=== PATIENT | female | born 1940 | race Caucasian/White ===

== ENCOUNTER → 2018-01-19 | Outpatient (CLI) | payer MEDICARE, OTHER ==
[~2018-01-19] MED LIST: CALCAVITD PO; CELE100 PO; CEPH500 PO; CETI10 PO; CHOL10002 PO; ESTR2 PO; Estrace PO; FAMO20 PO; GLUCHON PO; GLUCOSAMINE/MSM PO; HYDPAM50 PO; LEVOTHYROXINE PO; LEVSOD137 PO; LEVSOD50 PO; LISI20 PO; LISI5 PO; LOSA25; MOTION RELIEF25 MG PO; MULVITMIND PO; Norco 7.5-3251 EACH PO; OMEP20ER PO; OXYB5 PO; PRAV20 PO; PRED20 PO; Pravachol PO; Prilosec40 MG PO; SUCR1 PO; SULTRIDS PO; SULTRIEL PO; Synthroid112 MCG; TRIM100 PO; Transderm-Scop1 EACH TOP
== END | disposition home or self-care (01) ==
LOC: LAB SHORT 14:23 → OLS 14:23
DX: N39.0 Urinary tract infection, site not specified (principal)
CPT/HCPCS: 87077; 87086; 87186

== ENCOUNTER → 2018-05-19 | Outpatient (CLI) | payer MEDICARE, OTHER ==
[2018-05-24 15:07] LABS: HPV 16 Negative (Negative); HPV 18 Negative (Negative); HPV OTHER HR TYPES Negative (Negative)
== END | disposition home or self-care (01) ==
LOC: LAB 18:00 → LAB SHORT 18:00
PROVIDERS: Nurse Practitioner Women's Health
DX: Z12.72 Encounter for screening for malignant neoplasm of vagina (principal)
CPT/HCPCS: 87624; G0123

== ENCOUNTER → 2020-04-25 | Outpatient (CLI) | payer MEDICARE, OTHER ==
[2020-04-25 14:52] LABS: Stool Occult Blood Guaiac 1 Neg (Neg)
== END ==
LOC: LAB SHORT 11:16 → LAB EV 11:16
PROVIDERS: Internal Medicine
DX: D64.9 Anemia, unspecified (principal)
CPT/HCPCS: 82270

== ENCOUNTER 2020-09-25 00:27 | Day surgery (SDC) | payer MEDICARE, OTHER ==
[2020-09-25] MEDS ORDERED: IRON18 MG PO (09:00)
[2020-09-25] MEDS ORDERED: TUMS500 MG PO (09:01)
[2020-09-25] MEDS ORDERED: [UNRECOGNIZED DRUG - OTHER] PO (09:01)
[2020-09-25] MEDS ORDERED: MAGNESIUM OXID500 MG PO (09:02)
[2020-09-25] MEDS ORDERED: ZINC15 PO (09:02)
[2020-09-25] MEDS ORDERED: VITAMIN D5000 UNIT PO (09:03)
[2020-09-25] MEDS ORDERED: ROPI1 PO ×2 (09:04→09:06)
== END 2020-09-25 10:24 | disposition home or self-care (01) ==
LOC: ATC 00:27
DX: D46.1 Refractory anemia with ring sideroblasts (principal); I12.9 Hypertensive chronic kidney disease with stage 1 through stage 4 chronic kidney disease, or unspecified chronic kidney disease; N18.9 Chronic kidney disease, unspecified; D63.1 Anemia in chronic kidney disease; E55.9 Vitamin D deficiency, unspecified; D72.818 Other decreased white blood cell count; M19.90 Unspecified osteoarthritis, unspecified site; Z87.440 Personal history of urinary (tract) infections; Z79.899 Other long term (current) drug therapy; Z87.891 Personal history of nicotine dependence
CPT/HCPCS: 36415; 36430; 86850; 86900; 86901; 86923; J7050; P9016

== ENCOUNTER → 2021-07-07 | Outpatient (CLI) | payer MEDICARE, OTHER ==
[~2021-07-07] MED LIST changes: +IRON18 MG PO; +MAGNESIUM OXID500 MG PO; +ROPI1 PO; +TUMS500 MG PO; +VITAMIN D5000 UNIT PO; +ZINC15 PO; +[UNRECOGNIZED DRUG - OTHER] PO
[2021-07-07 09:13] LABS: BASOPHILS ABSOLUTE AUTO 0.04 K/mm3 (0.00-0.23); BASOPHILS PERCENT AUTO 1 % (0-2); EOSINOPHILS ABSOLUTE AUTO 0.04 K/mm3 (0.00-0.68); EOSINOPHILS PERCENT AUTO 1 % (0-6); Hemoglobin 9.4 g/dL (11.5-16.0); IMMATURE GRAN ABSOLUTE AUTO 0.02 K/mm3 (0.00-0.10); IMMATURE GRAN PERCENT AUTO 1 % (0-1); LYMPHOCYTES ABSOLUTE AUTO 0.34 K/mm3 (0.84-5.20); LYMPHOCYTES PERCENT AUTO 10 % (21-46); MONOCYTES ABSOLUTE AUTO 0.36 K/mm3 (0.16-1.47); MONOCYTES PERCENT AUTO 11 % (4-13); Mean Corpuscular HGB 34.4 pg (26.0-34.0); Mean Corpuscular HGB Conc 34.8 g/dL (31.5-36.5); Mean Corpuscular Volume 99 fL (80-100); Mean Platelet Volume 11.3 fL (9.1-12.4); NEUTROPHILS ABSOLUTE AUTO 2.52 K/mm3 (1.96-9.15); NEUTROPHILS PERCENT AUTO 76 % (41-73); Platelet Count 278 K/mm3 (150-400); RDW Coefficient Variation 18.8 % (11.7-14.2); RDW Standard Deviation 67.6 fL (35.1-46.3); Red Blood Cell Count 2.73 M/mm3 (3.80-5.20); White Blood Cell Count 3.32 K/mm3 (4.00-11.30)
[2021-07-07 09:29] LABS: Albumin, Blood 4.2 g/dL (3.4-5.0); Albumin/Globulin Ratio 1.3 (0.8-1.8); Bilirubin, Total 0.8 mg/dL (0.1-1.0); Bun/Creatinine Ratio 15.2 (12.0-20.0); Calcium, Blood 8.8 mg/dL (8.5-10.1); Creatinine, Blood 1.25 mg/dL (0.40-1.00); Globulin, Blood 3.3 g/dL (2.2-4.0); Potassium, Blood 4.3 mmol/L (3.5-5.5); Total Protein, Blood 7.5 g/dL (6.4-8.2)
== END | disposition home or self-care (01) ==
LOC: LAB SHORT 09:09
PROVIDERS: Family Medicine
DX: R06.00 Dyspnea, unspecified (principal)
CPT/HCPCS: 80053; 85025; 85379

== ENCOUNTER 2021-07-13 12:20 | Emergency (ER) | payer MEDICARE, OTHER ==
[~2021-07-13] VITALS: Ht 167.6 cm; Wt 72.6 kg
[~2021-07-13 12:20] MED LIST changes: -REBLOZYL75 MG
[2021-07-13] MEDS ORDERED: REBLOZYL75 MG (12:57)
[2021-07-13 14:11] LABS: International Normalized Ratio 1.03; Prothrombin Time Results 10.8 Sec (9.7-11.5)
[2021-07-13 14:19] LABS: Alanine Aminotransfer (ALT/SGP 34 U/L (12-78); Albumin, Blood 3.3 g/dL (3.4-5.0); Alk Phos 60 U/L (50-136); Anion Gap 6 mmol/L (6-16); Aspartate Aminotrans (AST/SGOT 35 U/L (12-37); Bilirubin, Direct 0.2 mg/dL (0.0-0.3); Bilirubin, Indirect 0.7 mg/dL (0.1-0.7); Bilirubin, Total 0.9 mg/dL (0.1-1.0); Blood Urea Nitrogen 26 mg/dL (8-24); Bun/Creatinine Ratio 21.1 (12.0-20.0); CO2, Blood 27 mmol/L (21-32); Calcium, Blood 9.1 mg/dL (8.5-10.1); Chloride, Blood 97 mmol/L (98-108); Creatinine, Blood 1.23 mg/dL (0.40-1.00); Globulin, Blood 3.4 g/dL (2.2-4.0); Glomerular Filtration Rate 42 (60-); Glucose, Blood 107 mg/dL (70-99); Magnesium, Blood 1.8 mg/dL (1.6-2.4); Potassium, Blood 4.6 mmol/L (3.5-5.5); Sodium, Blood 130 mmol/L (136-145); Total Protein, Blood 6.7 g/dL (6.4-8.2); Troponin I <0.015 ng/mL (0.000-0.040)
[2021-07-13 15:17] LABS: Influenza A, PCR NEGATIVE (NEGATIVE); Influenza B, PCR NEGATIVE (NEGATIVE); Resp Syncytial Virus, PCR NEGATIVE (NEGATIVE)
[2021-07-13 16:28] LABS: SARS-Cov-2 (COVID-19) PCR, MMC POSITIVE (NEGATIVE)
== END 2021-07-13 20:30 | disposition short-term general hospital (02) ==
LOC: ER 12:20
PROVIDERS: Student in an Organized Health Care Education/Training Program
DX: K92.1 Melena (principal); D64.9 Anemia, unspecified; U07.1 COVID-19; E03.9 Hypothyroidism, unspecified; Z88.1 Allergy status to other antibiotic agents; Z88.8 Allergy status to other drugs, medicaments and biological substances; Z79.899 Other long term (current) drug therapy
CPT/HCPCS: 0241U; 80048; 80076; 83605; 83690; 83735; 84484; 85610; 85730; 86850; 86900; 86901; 96365; 96366; 96376; 99285-25; A9270; C9113; J2405; J7030

== ENCOUNTER → 2021-07-13 | Outpatient (CLI) | payer MEDICARE, OTHER ==
[~2021-07-13] MED LIST changes: +REBLOZYL75 MG
[2021-07-13 11:26] LABS: Hematocrit 23.9 % (33.0-51.0); Hemoglobin 8.3 g/dL (11.5-16.0); Mean Corpuscular HGB 34.6 pg (26.0-34.0); Mean Corpuscular HGB Conc 34.7 g/dL (31.5-36.5); Mean Corpuscular Volume 100 fL (80-100); Mean Platelet Volume 12.5 fL (9.1-12.4); RDW Coefficient Variation 18.5 % (11.7-14.2); RDW Standard Deviation 66.2 fL (35.1-46.3)
[2021-07-13 11:37] LABS: Albumin, Blood 3.9 g/dL (3.4-5.0); Albumin/Globulin Ratio 1.2 (0.8-1.8); Bilirubin, Total 0.8 mg/dL (0.1-1.0); Bun/Creatinine Ratio 16.9 (12.0-20.0); Calcium, Blood 9.2 mg/dL (8.5-10.1); Creatinine, Blood 1.42 mg/dL (0.40-1.00); Globulin, Blood 3.3 g/dL (2.2-4.0); Potassium, Blood 4.2 mmol/L (3.5-5.5); Total Protein, Blood 7.2 g/dL (6.4-8.2)
[2021-07-13 11:39] LABS: BASOPHILS ABSOLUTE AUTO 0.03 K/mm3 (0.00-0.23); BASOPHILS PERCENT AUTO 0 % (0-2); EOSINOPHILS ABSOLUTE AUTO 0.04 K/mm3 (0.00-0.68); EOSINOPHILS PERCENT AUTO 1 % (0-6); IMMATURE GRAN ABSOLUTE AUTO 0.16 K/mm3 (0.00-0.10); IMMATURE GRAN PERCENT AUTO 2 % (0-1); LYMPHOCYTES ABSOLUTE AUTO 0.86 K/mm3 (0.84-5.20); LYMPHOCYTES PERCENT AUTO 13 % (21-46); MONOCYTES ABSOLUTE AUTO 0.52 K/mm3 (0.16-1.47); MONOCYTES PERCENT AUTO 8 % (4-13); NEUTROPHILS ABSOLUTE AUTO 5.12 K/mm3 (1.96-9.15); NEUTROPHILS PERCENT AUTO 76 % (41-73); NRBC ABSOLUTE 0.19 K/mm3 (0.00-0.02); NRBC Auto 2.8 /100 WBC (0.0-0.2); Platelet Count 234 K/mm3 (150-400); White Blood Cell Count 6.73 K/mm3 (4.00-11.30)
== END | disposition home or self-care (01) ==
LOC: LAB 11:22 → LAB SHORT 11:22
PROVIDERS: General Practice
DX: R10.9 Unspecified abdominal pain (principal)
CPT/HCPCS: 80053; 82150; 85025

== ENCOUNTER 2023-09-24 08:28 | Day surgery (SDC) | payer MEDICARE, OTHER ==
[2023-09-24] VITALS (11 sets, daily range): BP systolic 132–168; BP diastolic 60–79
[~2023-09-24] VITALS: Ht 167.6 cm; Wt 74.9 kg
[~2023-09-24 08:28] MED LIST changes: +CLON.5; +ONDA4 PO; +REBLOZYL75 MG; +TRAM50
[2023-09-24 10:55] LABS: Albumin, Blood 3.8 g/dL (3.4-5.0); Albumin/Globulin Ratio 1.1 (0.8-1.8); Bilirubin, Total 1.3 mg/dL (0.1-1.0); Bun/Creatinine Ratio 20.6 (12.0-20.0); Calcium, Blood 8.5 mg/dL (8.5-10.1); Creatinine, Blood 1.02 mg/dL (0.40-1.00); Globulin, Blood 3.4 g/dL (2.2-4.0); Potassium, Blood 4.1 mmol/L (3.5-5.5); Total Protein, Blood 7.2 g/dL (6.4-8.2)
--- NOTE | 2023-09-24 12:23 | NUR ---
PT TO DAY SURGERY STEP DOWN FROM PACU; BEDSIDE REPORT RECEIVED FROM LIVIA KANG. PT IS AWAKE, ALERT AND ORIENTED; ABLE TO MOVE SELF IN BED. VSS. PT HAS NO COMPLAINTS AT THIS TIME. PT HAD MEDIPORT PLACED IN HER RIGHT UPPER CHEST AREA, THE INCISION IS COVERED WITH GUAZE AND CLEAR TEGADERM AND IS C/D/I. PT ALSO HAS A STERI STRIP ON LOWER RIGHT NECK, IT HAS SMALL AMOUNT OF DRIED BLOOD ON IT. PT HAS NO COMPLAINTS AT THIS TIME.
--- NOTE | 2023-09-24 12:35 | NUR ---
PO FLUIDS GIVEN TO PT. PT AT BEDSIDE.
--- NOTE | 2023-09-24 12:41 | NUR ---
Patient denies nausea at this time. Tolerating sips of juice. Denies pain to surgery site, but states she has a headache. 2x2 gauze drsg to right side chest wall intact coverd by clear drsg. No visible swelling, erythema, drainage or bruising noted. Steri Strip x1 to righ lower anterior neck clean, dry and intact with scant amount dry red drainage noted.
--- NOTE | 2023-09-24 12:45 | NUR ---
, Anam, at bedside. to drive patient home.
--- NOTE | 2023-09-24 13:21 | NUR ---
PATIENT AMBULATED TO BR WITH STAND BY ASSIST. GAIT STEADY. PATIENT DENIES DIZZINESS WITH STANDING. VSS. Discharge instructions reviewed with patient. Patient verbalizes understanding. Copy given to patient to take home. Prescription script given to patient to fill at pharmacy of choice.
== END 2023-09-24 13:22 | disposition home or self-care (01) ==
LOC: ORD 08:28 → ORSCMMR 08:28 → ORD 10:30
PROVIDERS: Anesthesiology; Surgery
PROC: 05HM33Z Insertion of Infusion Device into Right Internal Jugular Vein, Percutaneous Approach (ICD-10-PCS; principal; 2023-09-24 10:30)
PROC: B543ZZA Ultrasonography of Right Jugular Veins, Guidance (ICD-10-PCS; principal; 2023-09-24 10:30)
PROC: 0JH63WZ Insertion of Totally Implantable Vascular Access Device into Chest Subcutaneous Tissue and Fascia, Percutaneous Approach (ICD-10-PCS; principal; 2023-09-24 10:30)
DX: D46.4 Refractory anemia, unspecified (principal); I12.9 Hypertensive chronic kidney disease with stage 1 through stage 4 chronic kidney disease, or unspecified chronic kidney disease; N18.9 Chronic kidney disease, unspecified; E78.00 Pure hypercholesterolemia, unspecified; Z78.9 Other specified health status; E03.9 Hypothyroidism, unspecified; E78.5 Hyperlipidemia, unspecified; Z79.899 Other long term (current) drug therapy
CPT/HCPCS: 77001; 80053; C1788; J0690; J1100; J1642; J2001; J2405; J2704; J3010; J7120

== ENCOUNTER 2023-09-27 04:29 | Day surgery (SDC) | payer MEDICARE, OTHER ==
[2023-09-27 13:35] VITALS: BP 153/54
[2023-09-27 14:33] VITALS: BP 143/61
[2023-09-27 15:32] VITALS: BP 140/56
[2023-09-27 15:55] VITALS: BP 149/59
[2023-09-27] MEDS ORDERED: LOSA50 PO (16:10)
[2023-09-27] MEDS ORDERED: HYDROCODONE-AC1 EA19 PO (16:10)
[2023-09-27] MEDS ORDERED: COLACE100 MG PO (16:12)
[2023-09-27] MEDS ORDERED: K2 LIQUID90 MCG/0.5 PO (16:12)
[2023-09-27] MEDS ORDERED: VITAMIN D5000 UNIT PO (16:13)
[2023-09-27] MEDS ORDERED: OMEPRAZOLE20 M2 PO (16:14)
== END 2023-09-27 16:03 | disposition home or self-care (01) ==
LOC: ATC 04:29
DX: D46.1 Refractory anemia with ring sideroblasts (principal); E78.00 Pure hypercholesterolemia, unspecified; I12.9 Hypertensive chronic kidney disease with stage 1 through stage 4 chronic kidney disease, or unspecified chronic kidney disease; N18.9 Chronic kidney disease, unspecified; Z79.899 Other long term (current) drug therapy; Z88.8 Allergy status to other drugs, medicaments and biological substances; D46.9 Myelodysplastic syndrome, unspecified
CPT/HCPCS: 36415; 36430; 86850; 86900; 86901; 86923; J1642; J7050; P9016

== ENCOUNTER 2023-10-16 07:37 | Inpatient (IN) | payer MEDICARE, OTHER ==
[~2023-10-16] VITALS: Ht 162.6 cm; Wt 76.3 kg
[2023-10-16] VITALS (11 sets, daily range): BP systolic 116–146; BP diastolic 51–96
[~2023-10-16 07:37] MED LIST changes: +ASCO500 PO; +COLACE100 MG PO; +HYDROCODONE-AC1 EA19 PO; +LOSA50 PO; +OMEPRAZOLE20 M2 PO; +Vitamin K100 MCG PO; -[UNRECOGNIZED DRUG - OTHER] PO
[2023-10-16 08:43] LABS: Mean Corpuscular HGB 33.3 pg (26.0-34.0); Mean Corpuscular HGB Conc 34.7 g/dL (31.5-36.5); Mean Corpuscular Volume 96 fL (80-100); RDW Coefficient Variation 21.3 % (11.7-14.2); RDW Standard Deviation 74.2 fL (35.1-46.3)
[2023-10-16 09:00] LABS: Albumin, Blood 3.1 g/dL (3.4-5.0); Albumin/Globulin Ratio 0.9 (0.8-1.8); Bilirubin, Total 0.5 mg/dL (0.1-1.0); Bun/Creatinine Ratio 16.8 (12.0-20.0); Calcium, Blood 8.2 mg/dL (8.5-10.1); Creatinine, Blood 1.19 mg/dL (0.40-1.00); Globulin, Blood 3.6 g/dL (2.2-4.0); Hematocrit 17.3 % (33.0-51.0); Potassium, Blood 4.1 mmol/L (3.5-5.5); Total Protein, Blood 6.7 g/dL (6.4-8.2); White Blood Cell Count 0.16 K/mm3 (4.00-11.30)
[2023-10-16 09:01] LABS: Platelet Count 24 K/mm3 (150-400)
[2023-10-16 09:24] LABS: BASOPHILS PERCENT MAN 4 % (0-2); EOSINOPHILS PERCENT MAN 4 % (0-6); LYMPHOCYTES % ATYPICAL MANUAL 4 % (0-0); LYMPHOCYTES ABSOLUTE MAN 0.11 K/mm3 (0.84-5.20); LYMPHOCYTES PERCENT MAN 68 % (21-46); MONOCYTES ABSOLUTE MAN 0.01 K/mm3 (0.16-1.47); MONOCYTES PERCENT MAN 12 % (4-13); NEUTROPHILS ABSOLUTE MAN 0.01 K/mm3 (1.96-9.15); SEG NEUTROPHILS PERCENT MAN 8 % (41-73); TOTAL CELLS COUNTED 25
[2023-10-16 10:29] LABS: Influenza A, PCR NEGATIVE (NEGATIVE); Influenza B, PCR NEGATIVE (NEGATIVE); Resp Syncytial Virus, PCR NEGATIVE (NEGATIVE); SARS-Cov-2 (COVID-19) PCR, MMC NEGATIVE (NEGATIVE)
[2023-10-16] MEDS ORDERED: TRAM50 PO (10:53)
[2023-10-16] MEDS ORDERED: KLONOPIN0.5 M9 PO (10:53)
--- NOTE | 2023-10-16 17:58 | NUR ---
SHIFT SUMMARY: PATIENT ARRIVES TO ROOM AT 1121 FROM ER FOR DX'S OF WEAKNESS. PATIENT A/OX4, ANSWER TO QUESTIONS APPROPRIATELY AND ABLE TO MAKE NEEDS KNOWN. 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 MATUTE A WEEK AGO. PATIENT ALSO REPORTS SHE HAS BEEN INCREASINGLY WEAK SINCE AND SOB FOR THE LAST 3 DAYS. PATIENT HAD LAB DRAWN IN ER; H/H 6.0/17.3, LACTIC 2.1, WBC 0.16 AND PLATELET 24. PATIENT HAD REPEAT LACTIC DONE THIS PM c RESULT OF 1.8. PATIENT HAD A TEMP RANGES 99.2-101.1, MEDICATED c PO TYLENOL c GOOD EFFECT. PATIENT HAS ORDER TO TRANSFUSED 2 UNITS PRBC. PATIENT RECEIVED 1 UNIT PRBC THIS SHIFT. PATIENT REPORTS "FEELING BETTER AND BREATHING HAS IMPROVED AFTER THE 1ST UNIT OF PRBC. PATIENT HAD OT EPISODE OF NAUSEA BUT NO VOMITING, MEDICATED c PRN NAUSEA MEDS c GOOD EFFECT. PATIENT ATE 50% OF HER DINNER, TOLERATED WELL. PATIENT AMBULATES TO BATHROOM/BACK IN BED c SBA. PATIENT DENIES CP/PRESSURE. PATIENT REPORTS CHRONIC BACK PAIN, MEDICATED c PO ULTRAM c GOOD EFFECT. VITAL SIGNS REVIEWED. CALL LIGHT IN REACH.
--- NOTE | 2023-10-17 02:13 | NUR ---
Call from lab pt had positive BC gram poss cocci in clusters. Called Dr Baltazar about possitive blood cultures no orders given.
[2023-10-17 04:24] VITALS: BP 116/54
[2023-10-17 04:43] LABS: Hematocrit 21.1 % (33.0-51.0); Hemoglobin 7.4 g/dL (11.5-16.0); Mean Corpuscular HGB Conc 35.1 g/dL (31.5-36.5); RDW Coefficient Variation 19.1 % (11.7-14.2); RDW Standard Deviation 62.8 fL (35.1-46.3); Red Blood Cell Count 2.31 M/mm3 (3.80-5.20)
[2023-10-17 04:52] LABS: BASOPHILS PERCENT AUTO 0 % (0-2); EOSINOPHILS PERCENT AUTO 0 % (0-6); IMMATURE GRAN PERCENT AUTO 0 % (0-1); LYMPHOCYTES PERCENT AUTO 86 % (21-46); MONOCYTES PERCENT AUTO 0 % (4-13); Mean Corpuscular Volume 91 fL (80-100); NEUTROPHILS ABSOLUTE AUTO 0.05 K/mm3 (1.96-9.15); NEUTROPHILS PERCENT AUTO 14 % (41-73)
[2023-10-17 04:54] LABS: Platelet Count 36 K/mm3 (150-400); White Blood Cell Count 0.35 K/mm3 (4.00-11.30)
[2023-10-17 05:03] LABS: Albumin, Blood 2.7 g/dL (3.4-5.0); Albumin/Globulin Ratio 0.8 (0.8-1.8); Bilirubin, Total 0.7 mg/dL (0.1-1.0); Bun/Creatinine Ratio 15.8 (12.0-20.0); Calcium, Blood 7.6 mg/dL (8.5-10.1); Creatinine, Blood 1.2 mg/dL (0.40-1.00); Globulin, Blood 3.5 g/dL (2.2-4.0); Magnesium, Blood 1.7 mg/dL (1.6-2.4); Potassium, Blood 4.1 mmol/L (3.5-5.5); Total Protein, Blood 6.2 g/dL (6.4-8.2)
--- NOTE | 2023-10-17 05:56 | NUR ---
SHIFT SUMMERY, PT TOLERATED PRBC TRANSFUSIONS WELL PT MUCH LESS SOB WITH ACTIVITY AND SEEMING TO BE A LITTLE MORE ACTIVE AND STABLE WHEN WALKING. PT C/O BACK PAIN GIVEN PAIN MED, PT REQUESTED ICE PACK FOR HER BACK PAIN. REPOSITIONED BED TO HELP WITH BACK PAIN. PT HAS CHRONIC BACK PAIN. CALL LIGHT IN REACH.
[2023-10-17 07:50] VITALS: BP 111/59
[2023-10-17 15:40] VITALS: BP 118/52
--- NOTE | 2023-10-17 18:12 | NUR ---
SHIFT SUMMARY: PATIENT A/OX4, PLEASANT AND COOPERATIVE c CARE. PATIENT USES CALL LIGHT APPROPRIATELY AND ABLE TO MAKE NEEDS KNOWN. PATIENT REPORTS "OVERALL, FEELING BETTER TODAY." PATIENT REPORTS PAINFUL JAW, HARD TO SWALLOW D/T SORE IN HER MOUTH/PALATE, DR. SIMPSON IS AWARE OF THIS ISSUE. PATIENT HAS MAGIC MOUTHWASH AND NYSTATIN ORDERED. PATIENT RECEIVED SHOWER AND LINEN CHANGED TODAY. PATIENT IS CONTINENCE OF BOWELS/BLADDER AND HAS BEEN AMBULATING TO BATHROOM c SBA T/O SHIFT. PATIENT FAMILY/FRIENDS AT BEDSIDE OFF AND ON T/O SHIFT. PATIENT ON NEUTROPENIC PRECAUTION. PATIENT PAIN TO BACK WELL CONTROLLED c EMAR PRN PAIN MEDS. VITAL SIGNS REVIEWED. PIV TO RAC SALINE LOCKED. CALL LIGHT IN REACH.
[2023-10-17 19:10] VITALS: BP 171/71
[2023-10-18 03:12] VITALS: BP 138/73
[2023-10-18 07:22] VITALS: BP 151/57
--- NOTE | 2023-10-18 09:00 | NUR ---
pt sitting up in bed, spouce at bedside, a/ox4, pleasant and cooperative with care, follows commands well, denies pain at this time, lungs are clear t/o, she reports she wheezes when she ambulates, and gets sob, asked her to call next time she is up so can check sats, on r/a, resp even and unlabored, no cough noted, hrr, no edema noted, ppp faint, cap refill <3 sec, vs stable, afebrile, piv to rac, site is clear and patent, btx4, abd flat soft nontender, voids without diff, skin c/w/d, macris, annalise, she complains of pain with swallow, throat and palate is very red toward the back, pt states she takes her requip prn, and doesn't want it now. medicated for pain with tramodal. call light in reach.
[2023-10-18 12:33] LABS: Hematocrit 24.1 % (33.0-51.0); Hemoglobin 8.3 g/dL (11.5-16.0); Mean Corpuscular HGB 31.9 pg (26.0-34.0); Mean Corpuscular HGB Conc 34.4 g/dL (31.5-36.5); Mean Corpuscular Volume 93 fL (80-100); Platelet Count 73 K/mm3 (150-400); RDW Coefficient Variation 19.4 % (11.7-14.2)
[2023-10-18 12:39] LABS: Mean Platelet Volume 12.3 fL (9.1-12.4)
[2023-10-18 13:28] LABS: BAND PERCENT MAN 4 % (0-8); BASOPHILS PERCENT MAN 0 % (0-2); EOSINOPHILS PERCENT MAN 0 % (0-6); LYMPHOCYTES % ATYPICAL MANUAL 4 % (0-0); LYMPHOCYTES ABSOLUTE MAN 0.32 K/mm3 (0.84-5.20); LYMPHOCYTES PERCENT MAN 76 % (21-46); MONOCYTES ABSOLUTE MAN 0.03 K/mm3 (0.16-1.47); MONOCYTES PERCENT MAN 8 % (4-13); NEUTROPHILS ABSOLUTE MAN 0.04 K/mm3 (1.96-9.15); SEG NEUTROPHILS PERCENT MAN 8 % (41-73); TOTAL CELLS COUNTED 25
[2023-10-18 13:54] LABS: Albumin, Blood 2.9 g/dL (3.4-5.0); Albumin/Globulin Ratio 0.7 (0.8-1.8); Bilirubin, Total 0.6 mg/dL (0.1-1.0); Bun/Creatinine Ratio 16.1 (12.0-20.0); Calcium, Blood 8.8 mg/dL (8.5-10.1); Creatinine, Blood 0.99 mg/dL (0.40-1.00); Globulin, Blood 3.9 g/dL (2.2-4.0); Potassium, Blood 4.4 mmol/L (3.5-5.5); Thyroid Stimulating Hormone 1.38 uIU/mL (0.360-4.800); Total Protein, Blood 6.8 g/dL (6.4-8.2)
[2023-10-18 16:43] VITALS: BP 151/61
--- NOTE | 2023-10-18 18:24 | NUR ---
no acute changes this shift. no complaints or needs, call light in reach, family has been at bedside. call light in reach.
--- NOTE | 2023-10-18 19:05 | NUR ---
RECEIVED REPORT FROM FAMILIA RN. PT SITTING UP IN BED. RESP EVEN ON RA. NO NEEDS OR COMPLAINTS AT THIS TIME. WILL CONTINUE TO PROVIDE CARE T/O SHIFT. CALL LT IN REACH.
[2023-10-18 21:34] VITALS: BP 138/63
--- NOTE | 2023-10-18 22:00 | NUR ---
PT SITTING UP IN BED DRINKING HOT TEA. MEDS GIVEN. TRAMADOL GIVEN FOR MOUTH AND BACK PAIN. WILL REASSESS. NO OTHER NEEDS. CALL LT IN REACH.
--- NOTE | 2023-10-19 00:17 | NUR ---
PT RESTING QUIETLY. DAUGHTER AT BEDSIDE. CALL LT IN REACH.
--- NOTE | 2023-10-19 00:19 | NUR ---
PT RESTING QUIETLY. CALL LT IN REACH.
--- NOTE | 2023-10-19 01:20 | NUR ---
PT REQUESTED HER 2100 DOSE OF REQUIP TO BE GIVEN. STATES HER RLS IS BOTHERING HER. PT GIVEN 2MG REQUIP, AND A CUP OF HOT PEPPERMINT TEA WITH HONEY. CALL LT IN REACH.
--- NOTE | 2023-10-19 04:10 | NUR ---
PT RESTING QUIETLY. CALL LT IN REACH.
[2023-10-19 04:41] LABS: Hematocrit 22.4 % (33.0-51.0); Hemoglobin 7.7 g/dL (11.5-16.0); Mean Corpuscular HGB Conc 34.4 g/dL (31.5-36.5); Mean Corpuscular Volume 93 fL (80-100); NRBC ABSOLUTE 0.02 K/mm3 (0.00-0.02); NRBC Auto 3.4 /100 WBC (0.0-0.2); Platelet Count 92 K/mm3 (150-400); RDW Coefficient Variation 18.8 % (11.7-14.2); RDW Standard Deviation 64.1 fL (35.1-46.3); Red Blood Cell Count 2.41 M/mm3 (3.80-5.20)
--- NOTE | 2023-10-19 04:45 | NUR ---
SHIFT SUMMARY: A/O X 4. STATES NEEDS APPROPRIATELY. ON RA. MEDICATED X2 WITH TRAMADOL FOR MOUTH AND BACK PAIN. PT LIKES TO TAKE TRAMADOL ALONG WITH A HOT CUP OF PEPPERMINT TEA AND HONEY, STATES IT'S A GOOD COMBO. PT HAS BEEN MOVING AROUND IN HER ROOM INDEPENDENTLY WITHOUT DIFFICULTY. NO ACUTE CHANGES. WILL CONTINUE TO PROVIDE CARE UNTIL SHIFT REPORT TO ONCOMING NURSE. CALL LT IN REACH.
[2023-10-19 04:56] LABS: White Blood Cell Count 0.59 K/mm3 (4.00-11.30)
[2023-10-19 05:10] LABS: Albumin, Blood 2.5 g/dL (3.4-5.0); Albumin/Globulin Ratio 0.7 (0.8-1.8); Bilirubin, Total 0.6 mg/dL (0.1-1.0); Bun/Creatinine Ratio 14.4 (12.0-20.0); Calcium, Blood 7.9 mg/dL (8.5-10.1); Creatinine, Blood 1.11 mg/dL (0.40-1.00); Globulin, Blood 3.5 g/dL (2.2-4.0)
[2023-10-19 05:32] LABS: BASOPHILS PERCENT MAN 0 % (0-2); EOSINOPHILS PERCENT MAN 0 % (0-6); LYMPHOCYTES ABSOLUTE MAN 0.54 K/mm3 (0.84-5.20); LYMPHOCYTES PERCENT MAN 92 % (21-46); MONOCYTES PERCENT MAN 0 % (4-13); NEUTROPHILS ABSOLUTE MAN 0.04 K/mm3 (1.96-9.15); SEG NEUTROPHILS PERCENT MAN 8 % (41-73); TOTAL CELLS COUNTED 25
[2023-10-19 05:41] VITALS: BP 132/70
--- NOTE | 2023-10-19 06:08 | NUR ---
MEDICATED PT FOR 10/10 MOUTH PAIN WITH TRAMADOL AND 5MLS OF THE LIDOCAINE MOUTH SWISH AND SWALLOW. PT UNDERSTANDS NOT TO EAT OR DRINK FOR 30 MINUTES AFTERWARDS. CALL LT IN REACH.
[2023-10-19 07:33] VITALS: BP 142/67
[2023-10-19 16:28] VITALS: BP 138/58
--- NOTE | 2023-10-19 16:54 | NUR ---
SUMMARY- PT AAOX4, CALM, AND COOPERATIVE THIS SHIFT. PT'S ONLY COMPLAINT WAS HER MOUTH PAIN. PT'S PAIN MODERATELY CONTROLLED WITH EMAR PAIN MEDS. SBA.
[2023-10-19 19:52] VITALS: BP 146/62
[2023-10-20 02:48] VITALS: BP 140/57
--- NOTE | 2023-10-20 03:35 | NUR ---
10/19/232101 PT LYING IN BED, REPORTS PAIN IN MOUTH,THROAT,JAW AND BACK. GAVE ULTRAM, MAGIC MOUTHWASH. PT ALSO REQUESTED AND RECIEVED PEPPERMINT TEA WITH HONEY AND VANILLA ICE CREAM. PT DECLINES SCD'S. NO OTHER APPARENT SIGNS OF DISTRESS. CALL LIGHT IS IN REACH.
--- NOTE | 2023-10-20 03:37 | NUR ---
10/19/23 2330 PT LYING IN BED, EYES CLOSED, APPEARS TO BE RESTING. BREATHING IS EVEN, UNLABORED. NO APPARENT SIGNS OF DISTRESS. CALL LIGHT IS IN REACH.
--- NOTE | 2023-10-20 03:38 | NUR ---
0200 PT LYING IN BED, EYES CLOSED, APPEARS TO BE RESTING. BREATHING IS EVEN, UNLABORED. NO APPARENT SIGNS OF DISTRESS. CALL LIGHT IS IN REACH.
--- NOTE | 2023-10-20 03:39 | NUR ---
PT REQUESTED AND RECIEVED PAIN MEDS, WILL EVAL FOR EFFECT. PT REQUESTED AND RECIEVED VANILLA PUDDING. NO OTHER APPARENT SIGNS OF DISTRESS. CALL LIGHT IS IN REACH.
--- NOTE | 2023-10-20 06:29 | NUR ---
PT IS AAO X 4, ON RA. DECLINED THE SCD'S. REPORTED PAIN IN MOUTH, JAW, THROAT, AND LOWER BACK. GOT ULTRAM X 2, MAGIC MOUTHWASH AT HS.
--- NOTE | 2023-10-20 06:30 | NUR ---
PT LYING IN BED, EYES CLOSED, APPEARS TO BE RESTING. BREATHING IS EVEN, UNLABORED. NO APPARENT SIGNS OF DISTRESS. CALL LIGHT IS IN REACH. NO OTHER CHANGES THIS SHIFT.
[2023-10-20 07:45] VITALS: BP 153/70
[2023-10-20 09:26] LABS: Hematocrit 24.2 % (33.0-51.0); Hemoglobin 8.1 g/dL (11.5-16.0); Mean Corpuscular HGB 31.8 pg (26.0-34.0); Mean Corpuscular HGB Conc 33.5 g/dL (31.5-36.5); Mean Corpuscular Volume 95 fL (80-100); Platelet Count 188 K/mm3 (150-400); RDW Coefficient Variation 19.2 % (11.7-14.2); Red Blood Cell Count 2.55 M/mm3 (3.80-5.20)
[2023-10-20 09:49] LABS: Mean Platelet Volume 13.3 fL (9.1-12.4); NRBC ABSOLUTE 0.02 K/mm3 (0.00-0.02); NRBC Auto 2.2 /100 WBC (0.0-0.2)
[2023-10-20 09:51] LABS: White Blood Cell Count 0.89 K/mm3 (4.00-11.30)
[2023-10-20 09:52] LABS: Albumin, Blood 2.6 g/dL (3.4-5.0); Albumin/Globulin Ratio 0.7 (0.8-1.8); Bilirubin, Total 0.7 mg/dL (0.1-1.0); Bun/Creatinine Ratio 11.9 (12.0-20.0); Calcium, Blood 8.7 mg/dL (8.5-10.1); Creatinine, Blood 1.01 mg/dL (0.40-1.00); Globulin, Blood 3.8 g/dL (2.2-4.0); Potassium, Blood 3.6 mmol/L (3.5-5.5); Total Protein, Blood 6.4 g/dL (6.4-8.2)
[2023-10-20 09:55] LABS: BAND PERCENT MAN 12 % (0-8); BASOPHILS PERCENT MAN 0 % (0-2); EOSINOPHILS PERCENT MAN 0 % (0-6); LYMPHOCYTES PERCENT MAN 68 % (21-46); MONOCYTES PERCENT MAN 0 % (4-13); NEUTROPHILS ABSOLUTE MAN 0.28 K/mm3 (1.96-9.15); SEG NEUTROPHILS PERCENT MAN 20 % (41-73); TOTAL CELLS COUNTED 25
[2023-10-20 12:22] LABS: Stool Occult Blood Guaiac 1 Neg (Neg)
[2023-10-20] MEDS ORDERED: ACET325 PO (13:38)
[2023-10-20] MEDS ORDERED: MAGNESIUM OXID400 M4 PO (13:39)
[2023-10-20] MEDS ORDERED: PREDNISOLO15 MG/5 ML PO (13:41)
[2023-10-20] MEDS ORDERED: DIPHENHYDR12.5 MG/5 PO (13:45)
[2023-10-20] MEDS ORDERED: NYSTATIN100000 U10 MT (13:47)
[2023-10-20] MEDS ORDERED: NYST237S MT (13:52)
[2023-10-20] MEDS ORDERED: FILG480I (13:52)
--- NOTE | 2023-10-20 14:41 | NUR ---
DISCHARGE HOME Patient AOx4, discussed plan of care with this AM. Pt wants to go home. MD spoke to oncology, instructed patient to f/u with oncology in am to arrange Nivestym SC injection. Reviewed discharge education, patient and verbalized understanding. Patient left med unit at 1430.
== END 2023-10-20 14:39 | disposition home or self-care (01) | DRG 809 ==
LOC: ER 07:37 → MEDS 09:38 → ENPENDDIS 10-20 14:19 → MEDS 10-20 14:39
PROVIDERS: Emergency Medicine; Family Medicine; ADMIT Internal Medicine
PROC: 30233N1 Transfusion of Nonautologous Red Blood Cells into Peripheral Vein, Percutaneous Approach (ICD-10-PCS; principal; 2023-10-16)
DX: D70.9 Neutropenia, unspecified (principal); E87.1 Hypo-osmolality and hyponatremia; E87.20 Acidosis, unspecified; R50.81 Fever presenting with conditions classified elsewhere; D46.9 Myelodysplastic syndrome, unspecified; D61.818 Other pancytopenia; E03.9 Hypothyroidism, unspecified; Z66 Do not resuscitate; N18.31 Chronic kidney disease, stage 3a; I12.9 Hypertensive chronic kidney disease with stage 1 through stage 4 chronic kidney disease, or unspecified chronic kidney disease; E55.9 Vitamin D deficiency, unspecified; R74.01 Elevation of levels of liver transaminase levels; M19.90 Unspecified osteoarthritis, unspecified site; G25.81 Restless legs syndrome; K12.0 Recurrent oral aphthae; T45.1X5A Adverse effect of antineoplastic and immunosuppressive drugs, initial encounter; G89.29 Other chronic pain; K21.9 Gastro-esophageal reflux disease without esophagitis; M54.50 Low back pain, unspecified; Z88.8 Allergy status to other drugs, medicaments and biological substances; Z88.1 Allergy status to other antibiotic agents; Z79.890 Hormone replacement therapy; Z11.52 Encounter for screening for COVID-19
CPT/HCPCS: 0241U; 36415; 70110; 71046; 80053; 82270; 83605; 83690; 83735; 84145; 84443; 84484; 85025; 86850; 86900; 86901; 86923; 87040; 87077; 87186; 93005; 93010; 94640; 94664; 94760; 96374; 99284-25; A9270; C9113; J0696; J1642; J2405; J7030; J7050; P9016; Q5110

== ENCOUNTER 2023-10-30 08:38 | Emergency (ER) | payer MEDICARE, OTHER ==
[~2023-10-30] VITALS: Ht 167.6 cm; Wt 72.6 kg
[~2023-10-30 08:38] MED LIST changes: +ACET325 PO; +DIPHENHYDR12.5 MG/5 PO; +FILG480I; +KLONOPIN0.5 M9 PO; +MAGNESIUM OXID400 M4 PO; +NYST237S MT; +NYSTATIN100000 U10 MT; +PREDNISOLO15 MG/5 ML PO; +TRAM50 PO
[2023-10-30 09:20] VITALS: BP 105/61
[2023-10-30 10:32] LABS: Hemoglobin 8.1 g/dL (11.5-16.0)
[2023-10-30] MEDS ORDERED: Morphine Sulfate 4 MG/1 ML Injection IV ONE (10:35)
[2023-10-30 10:39] LABS: Hematocrit 24.4 % (33.0-51.0); Mean Corpuscular HGB 31.4 pg (26.0-34.0); Mean Corpuscular HGB Conc 33.2 g/dL (31.5-36.5); Mean Corpuscular Volume 95 fL (80-100); Mean Platelet Volume 11.5 fL (9.1-12.4); Platelet Count 469 K/mm3 (150-400); RDW Coefficient Variation 20.1 % (11.7-14.2); RDW Standard Deviation 66.9 fL (35.1-46.3); Red Blood Cell Count 2.58 M/mm3 (3.80-5.20)
[2023-10-30 10:54] LABS: International Normalized Ratio 1.25
[2023-10-30 10:57] LABS: White Blood Cell Count 4.39 K/mm3 (4.00-11.30)
[2023-10-30 10:58] LABS: Albumin, Blood 3.2 g/dL (3.4-5.0); Albumin/Globulin Ratio 0.7 (0.8-1.8); Bilirubin, Total 0.6 mg/dL (0.1-1.0); Bun/Creatinine Ratio 21.2 (12.0-20.0); Calcium, Blood 9.3 mg/dL (8.5-10.1); Creatinine, Blood 1.04 mg/dL (0.40-1.00); Globulin, Blood 4.6 g/dL (2.2-4.0); Potassium, Blood 4.2 mmol/L (3.5-5.5); Total Protein, Blood 7.8 g/dL (6.4-8.2)
[2023-10-30 11:11] LABS: BAND PERCENT MAN 9 % (0-8); BASOPHILS PERCENT MAN 0 % (0-2); EOSINOPHILS PERCENT MAN 0 % (0-6); LYMPHOCYTES ABSOLUTE MAN 0.52 K/mm3 (0.84-5.20); LYMPHOCYTES PERCENT MAN 12 % (21-46); MONOCYTES ABSOLUTE MAN 0.13 K/mm3 (0.16-1.47); MONOCYTES PERCENT MAN 3 % (4-13); NEUTROPHILS ABSOLUTE MAN 3.73 K/mm3 (1.96-9.15); SEG NEUTROPHILS PERCENT MAN 76 % (41-73); TOTAL CELLS COUNTED 100
[2023-10-30] MEDS ORDERED: AMOCLA875 PO (12:46)
== END 2023-10-30 13:00 | disposition home or self-care (01) ==
LOC: ER 08:38
PROVIDERS: Student in an Organized Health Care Education/Training Program
DX: R04.0 Epistaxis (principal); T82.868D Thrombosis due to vascular prosthetic devices, implants and grafts, subsequent encounter; E03.9 Hypothyroidism, unspecified; I10 Essential (primary) hypertension; I42.9 Cardiomyopathy, unspecified; Z79.899 Other long term (current) drug therapy; Z88.1 Allergy status to other antibiotic agents; Z88.8 Allergy status to other drugs, medicaments and biological substances; Z79.01 Long term (current) use of anticoagulants; Y71.2 Prosthetic and other implants, materials and accessory cardiovascular devices associated with adverse incidents
CPT/HCPCS: 30903; 80053; 85025; 85610; 85730; 96374-59; 99283-25; J2270

== ENCOUNTER 2023-11-12 12:57 | Inpatient (IN) | payer MEDICARE, OTHER ==
[~2023-11-12] VITALS: Ht 167.6 cm; Wt 71.2 kg
[~2023-11-12 12:57] MED LIST changes: +AMOCLA875 PO; -PREDNISOLO15 MG/5 ML PO; +PREDNISOLON5 MG/5 ML MT; +ROPINIROLE HCL4 M1 PO; -Synthroid112 MCG; +Synthroid112 MCG PO
[2023-11-12 13:42] LABS: Mean Corpuscular HGB 32.3 pg (26.0-34.0); Mean Corpuscular HGB Conc 32.9 g/dL (31.5-36.5); Mean Corpuscular Volume 98 fL (80-100); Mean Platelet Volume 12.7 fL (9.1-12.4); NRBC ABSOLUTE 0.02 K/mm3 (0.00-0.02); NRBC Auto 1.6 /100 WBC (0.0-0.2); Platelet Count 83 K/mm3 (150-400); RDW Coefficient Variation 20.3 % (11.7-14.2); RDW Standard Deviation 68.4 fL (35.1-46.3); Red Blood Cell Count 1.61 M/mm3 (3.80-5.20); White Blood Cell Count 1.28 K/mm3 (4.00-11.30)
[2023-11-12 13:47] LABS: Hemoglobin 5.2 g/dL (11.5-16.0)
[2023-11-12 13:48] LABS: Hematocrit 15.8 % (33.0-51.0)
[2023-11-12 14:02] LABS: Albumin, Blood 3.2 g/dL (3.4-5.0); Albumin/Globulin Ratio 0.8 (0.8-1.8); Bilirubin, Total 0.4 mg/dL (0.1-1.0); Bun/Creatinine Ratio 24.5 (12.0-20.0); Calcium, Blood 8.9 mg/dL (8.5-10.1); Creatinine, Blood 1.06 mg/dL (0.40-1.00); Globulin, Blood 4.1 g/dL (2.2-4.0); Potassium, Blood 3.9 mmol/L (3.5-5.5); Total Protein, Blood 7.3 g/dL (6.4-8.2)
[2023-11-12 14:06] LABS: BASOPHILS ABSOLUTE MAN 0.02 K/mm3 (0.00-0.23); BASOPHILS PERCENT MAN 2 % (0-2); EOSINOPHILS ABSOLUTE MAN 0.07 K/mm3 (0.00-0.68); EOSINOPHILS PERCENT MAN 6 % (0-6); LYMPHOCYTES ABSOLUTE MAN 0.99 K/mm3 (0.84-5.20); LYMPHOCYTES PERCENT MAN 78 % (21-46); MONOCYTES PERCENT MAN 0 % (4-13); NEUTROPHILS ABSOLUTE MAN 0.17 K/mm3 (1.96-9.15); SEG NEUTROPHILS PERCENT MAN 14 % (41-73); TOTAL CELLS COUNTED 50
[2023-11-12] MEDS ORDERED: OMEP20ER PO (14:56)
[2023-11-12 15:34] LABS: International Normalized Ratio 1.08; Prothrombin Time Results 11.3 Sec (9.7-11.5)
[2023-11-12] MEDS ORDERED: NS 1,000 ML IV ONE (16:18)
[2023-11-12] MEDS ORDERED: NS 1,000 ML IV SCH (16:25)
[2023-11-12] MEDS ORDERED: Nystatin 100,000 Unit/ML Susp 5 ML UDC PO PRN (17:55)
[2023-11-12] MEDS ORDERED: TraMADol HCl 50 MG Tab PO PRN (17:55)
[2023-11-12] MEDS ORDERED: FLU VACC QS2023-24(6MOS UP)/PF 60 MCG/0.5 ML SYRINGE IM SCH (17:55)
[2023-11-12] MEDS ORDERED: Acetaminophen 325 MG TABLET PO PRN (17:55)
[2023-11-12] MEDS ORDERED: ClonazePAM 0.5 MG Tab PO PRN (18:05)
[2023-11-12] MEDS ORDERED: Pantoprazole Sodium 40 MG Injection IV SCH (19:00)
[2023-11-12 19:11] LABS: Hematocrit 21.1 % (33.0-51.0); Hemoglobin 7.1 g/dL (11.5-16.0); Mean Corpuscular HGB 31.6 pg (26.0-34.0); Mean Corpuscular HGB Conc 33.6 g/dL (31.5-36.5); Mean Corpuscular Volume 94 fL (80-100); Mean Platelet Volume 12.4 fL (9.1-12.4); NRBC ABSOLUTE 0.03 K/mm3 (0.00-0.02); NRBC Auto 1.9 /100 WBC (0.0-0.2); Platelet Count 138 K/mm3 (150-400); RDW Coefficient Variation 18.8 % (11.7-14.2); RDW Standard Deviation 58.8 fL (35.1-46.3); Red Blood Cell Count 2.25 M/mm3 (3.80-5.20); White Blood Cell Count 1.54 K/mm3 (4.00-11.30)
[2023-11-12 19:37] LABS: BASOPHILS PERCENT MAN 0 % (0-2); EOSINOPHILS ABSOLUTE MAN 0.04 K/mm3 (0.00-0.68); EOSINOPHILS PERCENT MAN 3 % (0-6); LYMPHOCYTES % ATYPICAL MANUAL 2 % (0-0); LYMPHOCYTES ABSOLUTE MAN 1.13 K/mm3 (0.84-5.20); LYMPHOCYTES PERCENT MAN 72 % (21-46); MONOCYTES ABSOLUTE MAN 0.07 K/mm3 (0.16-1.47); MONOCYTES PERCENT MAN 5 % (4-13); NEUTROPHILS ABSOLUTE MAN 0.27 K/mm3 (1.96-9.15); SEG NEUTROPHILS PERCENT MAN 18 % (41-73); TOTAL CELLS COUNTED 100
[2023-11-12] MEDS ORDERED: XARELTO20 MG PO (20:03)
[2023-11-12 20:10] LABS: Albumin, Blood 3.2 g/dL (3.4-5.0); Albumin/Globulin Ratio 0.7 (0.8-1.8); Bilirubin, Total 0.7 mg/dL (0.1-1.0); Bun/Creatinine Ratio 25.2 (12.0-20.0); Calcium, Blood 9.1 mg/dL (8.5-10.1); Creatinine, Blood 1.03 mg/dL (0.40-1.00); Globulin, Blood 4.8 g/dL (2.2-4.0); Potassium, Blood 4.3 mmol/L (3.5-5.5)
[2023-11-12] MEDS ORDERED: rOPINIRole HCl 2 MG Tab PO SCH (21:00)
[2023-11-12 21:07] VITALS: BP 174/71
[2023-11-12 21:52] LABS: Hematocrit 23.5 % (33.0-51.0); Hemoglobin 7.8 g/dL (11.5-16.0)
[2023-11-12 21:56] VITALS: BP 153/72
[2023-11-13 04:25] VITALS: BP 165/76
--- NOTE | 2023-11-13 05:27 | NUR ---
SHIFT SUMMARY 83 YR F ADMITTED TO [facility] FLOOR ON 11/12/22. FULL CODE. PT WAS INFUSING PRBC UPON ARRIVAL TO THIS UNIT AND SHE TOLERATED IT WELL. SHE HAS A HX OF MYELODYSPLASIA AND CHRONIC ANEMIA REQUIRING FREQUENT BLOOD TRANSFUSIONS. SHE HAS A MEDIPORT FOR THIS REASON. PT STATED SHE FELT MUCH BETTER AFTER RECEIVING THE BLOOD. SHE HAS CHRONIC BACK PAIN AND WAS MEDICATED PER EMAR. SHE STATED THAT SHE SLEPT WELL LAST NIGHT. NO ACUTE CHANGES THIS SHIFT.
[2023-11-13] MEDS ORDERED: Levothyroxine Sodium 0.112 MG Tab PO SCH (06:00)
[2023-11-13 07:28] VITALS: BP 145/65
[2023-11-13 08:37] LABS: Hematocrit 23.6 % (33.0-51.0); Hemoglobin 8.1 g/dL (11.5-16.0); Mean Corpuscular HGB Conc 34.3 g/dL (31.5-36.5); Mean Platelet Volume 11.3 fL (9.1-12.4); NRBC ABSOLUTE 0.02 K/mm3 (0.00-0.02); NRBC Auto 1.9 /100 WBC (0.0-0.2); Platelet Count 76 K/mm3 (150-400); RDW Coefficient Variation 18.6 % (11.7-14.2); RDW Standard Deviation 55.3 fL (35.1-46.3); Red Blood Cell Count 2.61 M/mm3 (3.80-5.20); White Blood Cell Count 1.04 K/mm3 (4.00-11.30)
[2023-11-13 08:41] LABS: Mean Corpuscular Volume 90 fL (80-100)
[2023-11-13 08:46] LABS: Bun/Creatinine Ratio 23.6 (12.0-20.0); Calcium, Blood 8.8 mg/dL (8.5-10.1); Creatinine, Blood 0.93 mg/dL (0.40-1.00); Potassium, Blood 3.8 mmol/L (3.5-5.5)
[2023-11-13 08:55] LABS: BAND PERCENT MAN 2 % (0-8); BASOPHILS PERCENT MAN 0 % (0-2); EOSINOPHILS ABSOLUTE MAN 0.12 K/mm3 (0.00-0.68); EOSINOPHILS PERCENT MAN 12 % (0-6); LYMPHOCYTES ABSOLUTE MAN 0.79 K/mm3 (0.84-5.20); LYMPHOCYTES PERCENT MAN 76 % (21-46); MONOCYTES ABSOLUTE MAN 0.02 K/mm3 (0.16-1.47); MONOCYTES PERCENT MAN 2 % (4-13); SEG NEUTROPHILS PERCENT MAN 8 % (41-73); TOTAL CELLS COUNTED 50
[2023-11-13] MEDS ORDERED: Cholecalciferol 1000 Unit Tablet (=25MCG) PO SCH (09:00)
[2023-11-13] MEDS ORDERED: Magnesium Oxide 400 MG Tab PO SCH (09:00)
[2023-11-13] MEDS ORDERED: Losartan Potassium 50 MG Tab PO SCH (09:00)
[2023-11-13] MEDS ORDERED: Ascorbic Acid 500 MG Tab PO SCH (09:00)
[2023-11-13] MEDS ORDERED: Polyethylene Glycol 3350 17 gm PO PRN (09:20)
[2023-11-13] MEDS ORDERED: Peg/Electrolytes 4,000 ML BTL PO ONE (12:25)
[2023-11-13 14:07] LABS: Hematocrit 23.3 % (33.0-51.0); Hemoglobin 7.8 g/dL (11.5-16.0)
[2023-11-13 15:32] VITALS: BP 151/62
--- NOTE | 2023-11-13 17:00 | NUR ---
DAYSHIFT SUMMARY Patient alert & oriented x4. GI consulted this morning, and plan care decided between GI & hospitalist. Plan to trend hemoglobin, and do ultrasound on IJ. No signs of bleeding in urine or stool this shift. Nivestym injection administred for neutropenia. Vitals stable. Will continue plan of care.
[2023-11-13 20:32] VITALS: BP 135/50
[2023-11-14 03:37] VITALS: BP 146/66
[2023-11-14 04:46] LABS: BASOPHILS ABSOLUTE AUTO 0.01 K/mm3 (0.00-0.23); BASOPHILS PERCENT AUTO 1 % (0-2); EOSINOPHILS ABSOLUTE AUTO 0.06 K/mm3 (0.00-0.68); EOSINOPHILS PERCENT AUTO 5 % (0-6); Hematocrit 22.5 % (33.0-51.0); Hemoglobin 7.5 g/dL (11.5-16.0); Mean Corpuscular HGB 31.1 pg (26.0-34.0); Mean Corpuscular HGB Conc 33.3 g/dL (31.5-36.5); Mean Corpuscular Volume 93 fL (80-100); Mean Platelet Volume 11.1 fL (9.1-12.4); Platelet Count 86 K/mm3 (150-400); RDW Standard Deviation 58.9 fL (35.1-46.3); Red Blood Cell Count 2.41 M/mm3 (3.80-5.20); White Blood Cell Count 1.13 K/mm3 (4.00-11.30)
[2023-11-14 04:50] LABS: IMMATURE GRAN ABSOLUTE AUTO 0.01 K/mm3 (0.00-0.10); IMMATURE GRAN PERCENT AUTO 1 % (0-1); LYMPHOCYTES ABSOLUTE AUTO 0.73 K/mm3 (0.84-5.20); LYMPHOCYTES PERCENT AUTO 65 % (21-46); MONOCYTES ABSOLUTE AUTO 0.01 K/mm3 (0.16-1.47); MONOCYTES PERCENT AUTO 1 % (4-13); NEUTROPHILS ABSOLUTE AUTO 0.31 K/mm3 (1.96-9.15); NEUTROPHILS PERCENT AUTO 27 % (41-73)
[2023-11-14 05:04] LABS: Alanine Aminotransfer (ALT/SGP 13 U/L (12-78); Albumin, Blood 2.9 g/dL (3.4-5.0); Albumin/Globulin Ratio 0.8 (0.8-1.8); Alk Phos 74 U/L (50-136); Anion Gap Unable to Calculate mmol/L (6-16); Aspartate Aminotrans (AST/SGOT 13 U/L (12-37); Bilirubin, Total 0.9 mg/dL (0.1-1.0); Blood Urea Nitrogen 22 mg/dL (8-24); Bun/Creatinine Ratio 23.6 (12.0-20.0); CO2, Blood 31 mmol/L (21-32); Calcium, Blood 8.8 mg/dL (8.5-10.1); Chloride, Blood 107 mmol/L (98-108); Creatinine, Blood 0.93 mg/dL (0.40-1.00); Globulin, Blood 3.8 g/dL (2.2-4.0); Glomerular Filtration Rate 60 (60-); Glucose, Blood 120 mg/dL (70-99); Sodium, Blood 137 mmol/L (136-145); Total Protein, Blood 6.7 g/dL (6.4-8.2)
[2023-11-14] MEDS ORDERED: Levothyroxine Sodium 0.112 MG Tab PO SCH (06:00)
[2023-11-14 07:32] VITALS: BP 146/64
--- NOTE | 2023-11-14 07:39 | NUR ---
END OF SHIFT SUMMARY PT A&O x4, VSS, AFEBRILE, PT ON RA. RESP RATE EVEN AND UNLABORED, NO DIFFICULTIES WITH BREATHING NOTED. PT PLEASANT AND COOPERATIVE WITH CARE PROVIDED. PT INDEPENDENT WITH ADL's, UP AD MARGUERITE IN ROOM. PRN TRAMADOL GIVEN FOR C/O CHRONIC BACK PAIN, WHICH WAS EFFECTIVE. PT STATED THAT SHE SLEPT WELL UP UNTIL MORNING VITAL SIGNS WERE TAKEN. PT DENIED CHEST PAIN, NO SOB. NO REPORTS OF BLACK STOOL ON NOC SHIFT. PT ABLE TO MAKE NEEDS KNOWN, CALL LIGHT WITHIN REACH, WCTM.
[2023-11-14] MEDS ORDERED: Lidocaine 2% Viscous Soln 20 ML,Nystatin 100,000 Unit/ml Susp 20 ML,Mag Hydrox/Al Hydro... MT PRN (11:55)
--- NOTE | 2023-11-14 16:02 | NUR ---
SHIFT SUMMARY MS HUYNH IS ORIENTATED X4. UP WITH STEADY GAIT TO CHAIR AND SHOWER/BR. BLACK STOOL X 1 THIS SHIFT. ATE REGULAR DIET FOR LUNCH. DENIES PAIN. HER WAS IN VISITING HER EARLIER TODAY. BED LOW, CALL LIGHT IN REACH.
[2023-11-14 16:08] VITALS: BP 123/63
[2023-11-14 16:17] LABS: Hematocrit 22.5 % (33.0-51.0); Hemoglobin 7.5 g/dL (11.5-16.0)
[2023-11-14 19:51] VITALS: BP 138/59
[2023-11-14] MEDS ORDERED: DIPHENHYDR12.5 MG/5 PO (21:59)
[2023-11-14] MEDS ORDERED: DOCU100 PO (22:00)
[2023-11-14] MEDS ORDERED: LEVSOD112 PO (22:02)
[2023-11-14] MEDS ORDERED: XYLOCAINE MT (22:05)
[2023-11-14] MEDS ORDERED: TRAM50 PO (22:09)
[2023-11-14] MEDS ORDERED: FILG480I SC (22:09)
[2023-11-14] MEDS ORDERED: XARELTO20 M1 PO (22:10)
[2023-11-14] MEDS ORDERED: MUPIROCIN2210 TOP (22:11)
[2023-11-15 03:24] VITALS: BP 118/77
[2023-11-15 06:36] LABS: Hematocrit 24.5 % (33.0-51.0); Hemoglobin 8.1 g/dL (11.5-16.0); Mean Corpuscular HGB 31.4 pg (26.0-34.0); Mean Corpuscular HGB Conc 33.1 g/dL (31.5-36.5); Mean Corpuscular Volume 95 fL (80-100); Mean Platelet Volume 12.9 fL (9.1-12.4); NRBC ABSOLUTE 0.02 K/mm3 (0.00-0.02); NRBC Auto 1.2 /100 WBC (0.0-0.2); Platelet Count 115 K/mm3 (150-400); RDW Coefficient Variation 18.6 % (11.7-14.2); RDW Standard Deviation 57.5 fL (35.1-46.3); Red Blood Cell Count 2.58 M/mm3 (3.80-5.20); White Blood Cell Count 1.69 K/mm3 (4.00-11.30)
[2023-11-15 07:01] LABS: Bun/Creatinine Ratio 18.8 (12.0-20.0); Calcium, Blood 9.3 mg/dL (8.5-10.1); Creatinine, Blood 1.01 mg/dL (0.40-1.00); Potassium, Blood 4.2 mmol/L (3.5-5.5)
[2023-11-15 07:26] VITALS: BP 153/63
[2023-11-15 07:41] LABS: BAND PERCENT MAN 10 % (0-8); BASOPHILS PERCENT MAN 0 % (0-2); EOSINOPHILS ABSOLUTE MAN 0.03 K/mm3 (0.00-0.68); EOSINOPHILS PERCENT MAN 2 % (0-6); LYMPHOCYTES % ATYPICAL MANUAL 2 % (0-0); LYMPHOCYTES ABSOLUTE MAN 0.91 K/mm3 (0.84-5.20); LYMPHOCYTES PERCENT MAN 52 % (21-46); MONOCYTES ABSOLUTE MAN 0.03 K/mm3 (0.16-1.47); MONOCYTES PERCENT MAN 2 % (4-13); SEG NEUTROPHILS PERCENT MAN 32 % (41-73); TOTAL CELLS COUNTED 50
--- NOTE | 2023-11-15 07:41 | NUR ---
END OF SHIFT SUMMARY PT A&O x4, VSS, AFEBRILE. PT ON RA, RESP RATE EVEN AND UNLABORED. LUNG SOUNDS CTA. PT UP AD MARGUERITE IN ROOM, INDEPENDENT WITH ADL's. PT C/O PAIN TO LOWER BACK. PAIN MANAGED WITH PRN TRAMADOL, WHICH WAS EFFECTIVE. PRN CLONAZEPAM GIVEN FOR ANXIETY WITH GOOD RESULTS. PT HAD ONE SMALL BLACK STOOL OVERNIGHT, NO BLOOD WAS PRESENT. PT ABLE TO MAKE NEEDS KNOWN. CALL LIGHT WITHIN REACH, WCTM.
--- NOTE | 2023-11-15 08:00 | NUR ---
pt laying in bed awake a/ox4, pleasant and cooperative with care, follows commands well, reprort low back pain /, and requested tramodal, lungs are clear t/o, resp even and unlabored, no cough noted, hrr, no edema noted, ppp+2, cap refill< 3sec, vs stable, afebrile, piv to lac site is clear and patent, also has mediport accessed, flushes well, btx4, abd flat soft nontender, voids without diff, skin c/w/d, maew, annalise, call light in reach.
[2023-11-15] MEDS ORDERED: NEUPOGEN SC (14:24)
--- NOTE | 2023-11-15 15:45 | NUR ---
pt is being discharged to home, wound care rn spoke with her about resources for hospice if she decided she wants to go that route, ivs removed intact, mediport was packed with heparin and removed intact, no new meds to fax, went over instructions with her, she verbalized understanding, she has f/u appt with Dr. Mcguire tomorrow. 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
== END 2023-11-15 16:07 | disposition home or self-care (01) | DRG 809 ==
LOC: ER 12:57 → ERHOLD 12:58 → MEDS 12:58 → ENPENDDIS 11-15 12:13 → MEDS 11-15 16:07
PROVIDERS: Emergency Medicine; ADMIT Internal Medicine
PROC: 30233N1 Transfusion of Nonautologous Red Blood Cells into Peripheral Vein, Percutaneous Approach (ICD-10-PCS; principal; 2023-11-12)
DX: D61.818 Other pancytopenia (principal); I82.C11 Acute embolism and thrombosis of right internal jugular vein; K92.1 Melena; D46.9 Myelodysplastic syndrome, unspecified; R22.1 Localized swelling, mass and lump, neck; E03.9 Hypothyroidism, unspecified; I12.9 Hypertensive chronic kidney disease with stage 1 through stage 4 chronic kidney disease, or unspecified chronic kidney disease; M19.90 Unspecified osteoarthritis, unspecified site; E55.9 Vitamin D deficiency, unspecified; N18.31 Chronic kidney disease, stage 3a; G25.81 Restless legs syndrome; G89.29 Other chronic pain; M54.50 Low back pain, unspecified; K21.9 Gastro-esophageal reflux disease without esophagitis; Z88.1 Allergy status to other antibiotic agents; Z88.8 Allergy status to other drugs, medicaments and biological substances; Z79.890 Hormone replacement therapy; Z79.52 Long term (current) use of systemic steroids
CPT/HCPCS: 36415; 36430; 80048; 80053; 82272; 85014; 85018; 85025; 85610; 86850; 86900; 86901; 86923; 93005; 93010; 96374; 96376; 99285-25; A9270; C9113; G0378; J1642; J7030; P9016; Q5110

== ENCOUNTER 2024-03-16 03:05 | Day surgery (SDC) | payer MEDICARE, OTHER ==
[~2024-03-16 03:05] MED LIST changes: +DOCU100 PO; +FILG480I SC; +LEVSOD112 PO; +MUPIROCIN2210 TOP; +NEUPOGEN SC; +XARELTO20 M1 PO; +XARELTO20 MG PO; +XYLOCAINE MT
[2024-03-16] MEDS ORDERED: NS 250 ML IV SCH (06:55)
[2024-03-16 13:36] VITALS: BP 147/53
[2024-03-16 13:53] VITALS: BP 124/45
[2024-03-16 14:54] VITALS: BP 124/46
[2024-03-16 15:32] VITALS: BP 143/58
== END 2024-03-16 15:33 | disposition home or self-care (01) ==
LOC: ATC 03:05
DX: D46.1 Refractory anemia with ring sideroblasts (principal); I10 Essential (primary) hypertension; E03.9 Hypothyroidism, unspecified; Z87.891 Personal history of nicotine dependence; Z88.1 Allergy status to other antibiotic agents; Z88.8 Allergy status to other drugs, medicaments and biological substances; Z79.899 Other long term (current) drug therapy
CPT/HCPCS: 36415; 36430; 86850; 86900; 86901; 86923; J1642; J7050; P9016

== ENCOUNTER 2024-04-13 03:00 | Day surgery (SDC) | payer MEDICARE, OTHER ==
[2024-04-13] VITALS (7 sets, daily range): BP systolic 120–167; BP diastolic 52–70
[2024-04-13] MEDS ORDERED: NS 250 ML IV SCH (06:50)
== END 2024-04-13 17:25 | disposition home or self-care (01) ==
LOC: ATC 03:00
DX: D46.1 Refractory anemia with ring sideroblasts (principal); E03.9 Hypothyroidism, unspecified; I12.9 Hypertensive chronic kidney disease with stage 1 through stage 4 chronic kidney disease, or unspecified chronic kidney disease; N18.9 Chronic kidney disease, unspecified; Z87.891 Personal history of nicotine dependence; Z88.1 Allergy status to other antibiotic agents; Z88.8 Allergy status to other drugs, medicaments and biological substances; Z79.899 Other long term (current) drug therapy
CPT/HCPCS: 36430; 86850; 86900; 86901; 86923; J1642; J7050; P9016

== ENCOUNTER 2024-05-19 12:01 | Day surgery (SDC) | payer MEDICARE, OTHER ==
[2024-05-18 17:43] LABS: Hematocrit 23.3 % (33.0-51.0); Hemoglobin 7.6 g/dL (11.5-16.0); Mean Corpuscular HGB Conc 32.6 g/dL (31.5-36.5); Mean Corpuscular Volume 95 fL (80-100); Platelet Count 260 K/mm3 (150-400); RDW Coefficient Variation 19.5 % (11.7-14.2); RDW Standard Deviation 66.8 fL (35.1-46.3); Red Blood Cell Count 2.45 M/mm3 (3.80-5.20); White Blood Cell Count 2.35 K/mm3 (4.00-11.30)
[2024-05-18 17:48] LABS: Mean Platelet Volume 13.1 fL (9.1-12.4)
[2024-05-18 18:07] LABS: BASOPHILS ABSOLUTE MAN 0.04 K/mm3 (0.00-0.23); BASOPHILS PERCENT MAN 2 % (0-2); EOSINOPHILS ABSOLUTE MAN 0.42 K/mm3 (0.00-0.68); EOSINOPHILS PERCENT MAN 18 % (0-6); LYMPHOCYTES PERCENT MAN 30 % (21-46); MONOCYTES ABSOLUTE MAN 0.07 K/mm3 (0.16-1.47); MONOCYTES PERCENT MAN 3 % (4-13); SEG NEUTROPHILS PERCENT MAN 47 % (41-73); TOTAL CELLS COUNTED 100
[2024-05-19] VITALS (7 sets, daily range): BP systolic 126–156; BP diastolic 60–71
[2024-05-19] MEDS ORDERED: NS 250 ML IV SCH (13:20)
== END 2024-05-19 17:57 | disposition home or self-care (01) ==
LOC: ATC 12:01 → EDSTATUS 12-27 12:25 → LAB FUT 12-27 12:25
PROVIDERS: Internal Medicine Hematology & Oncology
DX: D46.1 Refractory anemia with ring sideroblasts (principal); I12.9 Hypertensive chronic kidney disease with stage 1 through stage 4 chronic kidney disease, or unspecified chronic kidney disease; N18.9 Chronic kidney disease, unspecified; D63.1 Anemia in chronic kidney disease; E78.00 Pure hypercholesterolemia, unspecified; E03.9 Hypothyroidism, unspecified; Z87.891 Personal history of nicotine dependence; Z79.01 Long term (current) use of anticoagulants; Z79.890 Hormone replacement therapy; Z79.899 Other long term (current) drug therapy; Z88.1 Allergy status to other antibiotic agents; Z88.8 Allergy status to other drugs, medicaments and biological substances
CPT/HCPCS: 36415; 36430; 85025; 86850; 86900; 86901; 86923; J1642; J7050; P9016

== ENCOUNTER 2024-06-23 10:11 | Day surgery (SDC) | payer MEDICARE, OTHER ==
[2024-06-22 12:59] LABS: Hematocrit 21.5 % (33.0-51.0); Hemoglobin 7.1 g/dL (11.5-16.0); Mean Corpuscular HGB 30.1 pg (26.0-34.0); Mean Corpuscular Volume 91 fL (80-100); Mean Platelet Volume 12.4 fL (9.1-12.4); NRBC ABSOLUTE 0.02 K/mm3 (0.00-0.02); NRBC Auto 1.4 /100 WBC (0.0-0.2); Platelet Count 112 K/mm3 (150-400); RDW Coefficient Variation 18.3 % (11.7-14.2); RDW Standard Deviation 59.4 fL (35.1-46.3); Red Blood Cell Count 2.36 M/mm3 (3.80-5.20); White Blood Cell Count 1.45 K/mm3 (4.00-11.30)
[2024-06-23] VITALS (7 sets, daily range): BP systolic 136–171; BP diastolic 57–70
[~2024-06-23 10:11] MED LIST changes: +NS 250 ML IV SCH
== END 2024-06-23 11:16 | disposition home or self-care (01) ==
LOC: ATC 10:11
PROVIDERS: Internal Medicine Hematology & Oncology
DX: D46.1 Refractory anemia with ring sideroblasts (principal); I12.9 Hypertensive chronic kidney disease with stage 1 through stage 4 chronic kidney disease, or unspecified chronic kidney disease; N18.9 Chronic kidney disease, unspecified; E78.00 Pure hypercholesterolemia, unspecified; E03.9 Hypothyroidism, unspecified; Z87.891 Personal history of nicotine dependence; Z79.890 Hormone replacement therapy; Z79.01 Long term (current) use of anticoagulants; Z79.899 Other long term (current) drug therapy; Z88.1 Allergy status to other antibiotic agents; Z88.8 Allergy status to other drugs, medicaments and biological substances; Z90.710 Acquired absence of both cervix and uterus
CPT/HCPCS: 36415; 36430; 85027; 86850; 86900; 86901; 86923; J1642; J7050; P9016

== ENCOUNTER 2024-07-20 01:36 | Day surgery (SDC) | payer MEDICARE, OTHER ==
[2024-07-18 17:21] LABS: BASOPHILS ABSOLUTE AUTO 0.05 K/mm3 (0.00-0.23); BASOPHILS PERCENT AUTO 3 % (0-2); EOSINOPHILS ABSOLUTE AUTO 0.19 K/mm3 (0.00-0.68); EOSINOPHILS PERCENT AUTO 10 % (0-6); Hematocrit 23.3 % (33.0-51.0); Hemoglobin 7.7 g/dL (11.5-16.0); IMMATURE GRAN ABSOLUTE AUTO 0.03 K/mm3 (0.00-0.10); IMMATURE GRAN PERCENT AUTO 2 % (0-1); LYMPHOCYTES ABSOLUTE AUTO 0.81 K/mm3 (0.84-5.20); LYMPHOCYTES PERCENT AUTO 43 % (21-46); MONOCYTES PERCENT AUTO 5 % (4-13); Mean Corpuscular Volume 91 fL (80-100); NEUTROPHILS ABSOLUTE AUTO 0.69 K/mm3 (1.96-9.15); NEUTROPHILS PERCENT AUTO 37 % (41-73); Platelet Count 140 K/mm3 (150-400); RDW Coefficient Variation 17.6 % (11.7-14.2); Red Blood Cell Count 2.57 M/mm3 (3.80-5.20); White Blood Cell Count 1.87 K/mm3 (4.00-11.30)
[~2024-07-20 01:36] MED LIST changes: -NS 250 ML IV SCH
[2024-07-20] MEDS ORDERED: NS 250 ML IV SCH (06:50)
[2024-07-20 07:34] VITALS: BP 151/57
[2024-07-20 07:56] VITALS: BP 118/47
[2024-07-20 08:57] VITALS: BP 143/59
[2024-07-20 09:30] VITALS: BP 145/66
== END 2024-07-20 09:33 | disposition home or self-care (01) ==
LOC: ATC 01:36 → EDSTATUS 07:30 → ATC 07:30
PROVIDERS: Registered Nurse Oncology
DX: D46.1 Refractory anemia with ring sideroblasts (principal); D72.818 Other decreased white blood cell count; E03.9 Hypothyroidism, unspecified; I12.9 Hypertensive chronic kidney disease with stage 1 through stage 4 chronic kidney disease, or unspecified chronic kidney disease; N18.9 Chronic kidney disease, unspecified; Z79.890 Hormone replacement therapy; Z79.01 Long term (current) use of anticoagulants; Z79.899 Other long term (current) drug therapy
CPT/HCPCS: 36415; 36430; 85025; 85027; 86850; 86900; 86901; 86923; J1642; J7050; P9016

== ENCOUNTER 2024-09-07 06:12 | Day surgery (SDC) | payer MEDICARE, OTHER ==
[2024-09-04 16:46] LABS: BASOPHILS ABSOLUTE AUTO 0.29 K/mm3 (0.00-0.23); BASOPHILS PERCENT AUTO 5 % (0-2); EOSINOPHILS ABSOLUTE AUTO 0.46 K/mm3 (0.00-0.68); EOSINOPHILS PERCENT AUTO 8 % (0-6); Hematocrit 22.1 % (33.0-51.0); Hemoglobin 7.6 g/dL (11.5-16.0); IMMATURE GRAN ABSOLUTE AUTO 0.04 K/mm3 (0.00-0.10); IMMATURE GRAN PERCENT AUTO 1 % (0-1); LYMPHOCYTES ABSOLUTE AUTO 1.47 K/mm3 (0.84-5.20); LYMPHOCYTES PERCENT AUTO 27 % (21-46); MONOCYTES ABSOLUTE AUTO 0.53 K/mm3 (0.16-1.47); MONOCYTES PERCENT AUTO 10 % (4-13); Mean Corpuscular HGB 32.3 pg (26.0-34.0); Mean Corpuscular HGB Conc 34.4 g/dL (31.5-36.5); Mean Corpuscular Volume 94 fL (80-100); Mean Platelet Volume 12.9 fL (9.1-12.4); NEUTROPHILS ABSOLUTE AUTO 2.71 K/mm3 (1.96-9.15); NEUTROPHILS PERCENT AUTO 49 % (41-73); NRBC ABSOLUTE 0.04 K/mm3 (0.00-0.02); NRBC Auto 0.7 /100 WBC (0.0-0.2); Platelet Count 258 K/mm3 (150-400); RDW Coefficient Variation 19.1 % (11.7-14.2); RDW Standard Deviation 63.7 fL (35.1-46.3); Red Blood Cell Count 2.35 M/mm3 (3.80-5.20)
[2024-09-07] VITALS (7 sets, daily range): BP systolic 118–162; BP diastolic 51–73
[2024-09-07] MEDS ORDERED: NS 250 ML IV SCH (06:55)
== END 2024-09-07 11:26 | disposition home or self-care (01) ==
LOC: ATC 06:12 → EDSTATUS 08-07 12:55 → LAB FUT 08-07 12:55 → ATC 08-07 12:55
PROVIDERS: Internal Medicine Hematology & Oncology
DX: D46.1 Refractory anemia with ring sideroblasts (principal); I12.9 Hypertensive chronic kidney disease with stage 1 through stage 4 chronic kidney disease, or unspecified chronic kidney disease; N18.9 Chronic kidney disease, unspecified; D63.1 Anemia in chronic kidney disease; E03.9 Hypothyroidism, unspecified; E78.00 Pure hypercholesterolemia, unspecified; M19.90 Unspecified osteoarthritis, unspecified site; Z87.891 Personal history of nicotine dependence; Z79.890 Hormone replacement therapy; Z79.899 Other long term (current) drug therapy; Z79.01 Long term (current) use of anticoagulants
CPT/HCPCS: 36415; 36430; 85025; 86850; 86900; 86901; 86923; J1642; J7050; P9016